=== PATIENT | female | born 1945 | race Caucasian/White ===

== ENCOUNTER 2016-07-24 13:29 | Outpatient (CLI) | payer MEDICARE, OTHER | END 2016-07-24 13:30 | disposition home or self-care (01) | DX: Z12.31 Encounter for screening mammogram for malignant neoplasm of breast (principal); M81.0 Age-related osteoporosis without current pathological fracture; Z80.3 Family history of malignant neoplasm of breast; R92.1 Mammographic calcification found on diagnostic imaging of breast ==

== ENCOUNTER 2016-07-24 13:32 | Outpatient (CLI) | payer MEDICARE, OTHER | END 2016-07-24 13:33 | disposition home or self-care (01) | DX: Z12.31 Encounter for screening mammogram for malignant neoplasm of breast (principal); Z80.3 Family history of malignant neoplasm of breast; R92.1 Mammographic calcification found on diagnostic imaging of breast ==

== ENCOUNTER 2016-08-31 12:28 | Outpatient (CLI) | payer MEDICARE, OTHER | END 2016-08-31 12:29 | disposition home or self-care (01) | DX: N63 Unspecified lump in breast (principal) | CPT/HCPCS: 76642; G0206 ==